=== PATIENT | female | born 1955 | race Caucasian/White ===

== ENCOUNTER → 2017-08-10 09:56 | Outpatient (CLI) | payer OTHER, SELFPAY ==
[2017-08-10 12:49] LABS: Anion Gap 6 (5-15); BUN 16 mg/dL (7-18); BUN/Creat Ratio 23.3 RATIO (10-20); Calcium,Total 9.2 mg/dL (8.5-10.1); Chloride 104 mmol/L (98-107); Cholesterol 207 mg/dL (200); Creatinine, Serum 0.69 mg/dL (0.55-1.02); EST Glomerular Filtration Rate 92 mL/min (>60); Est Glom Filt Rate - Afr Amer 112 mL/min (>60); Glucose 88 mg/dL (74-106); High Density Lipoprotein 53 mg/dL; Potassium 4.2 mmol/L (3.5-5.1); Sodium Level 140 mmol/L (136-145); Thyroid Stim Hormone (TSH) 2.49 uIU/mL (0.358-3.74); Triglycerides 109 mg/dL; Very Low Density Lipoprotein 22 mg/dL (5-40)
== END ==
PROVIDERS: Family Provider Family Medicine; PCP Family Medicine; Visit Provider Nurse Practitioner Adult Health
DX: Z13.220 Encounter for screening for lipoid disorders (principal); Z13.1 Encounter for screening for diabetes mellitus; Z13.29 Encounter for screening for other suspected endocrine disorder
CPT/HCPCS: 36415; 80048; 80061; 84443

== ENCOUNTER 2017-08-16 07:53 | Day surgery (SDC) | payer OTHER, SELFPAY ==
--- NOTE | 2017-08-16 | COLBX_PTH ---
PATIENT: JOSE ROCK LOC: EN U#:[id number] AGE/SX: 62/F ROOM: RE08/16/[address]: Dr. Dung Rose MD : [id number] BED: DIS: 08/16/2017 SPEC #: [id number] RECD: 08/16/17 09:28 STATUS: CAROL YANICK #: [id number] LUIS: 08/16/17 00:[address]: Dung Rose DEPT: SURGICAL PATHOLOGY RECD BY: Topher Turpin ENTERED: 08/16/17 13:11 SP TYPE: COLON BX OTHR DR: Dr. Fortunato Jacobo MD Tissues: Rectum, NOS Procedures: Surgery Specimen Level IV HEADER OPERATION: Colonoscopy PRE-OP DIAGNOSIS: Rectal bleeding TISSUE SUBMITTED: Mid and proximal rectum biopsy MICROSCOPIC DIAGNOSIS Mid and proximal rectum, biopsy: Focal acute colitis, nonspecific. AM:alma 08/17/17 COMMENT There is focal acute colitis involving superficial epithelium. No crypt abscesses or granulomas are seen and no fissuring ulcers are present. Clinical correlation is suggested. MICROSCOPIC DESCRIPTION Slides are reviewed. GROSS DESCRIPTION Received in fixative is one container labeled with the patient's name and designated proximal rectum biopsy. The specimen consists of two irregular fragments of light ramirez soft tissue that in aggregate measure 0.5 x 0.3 x 0.1 cm. The specimen is totally submitted in one cassette. / AM:alma 08/16/17 TC:2 CPT: 27996
[2017-08-16 08:19] VITALS: BP 120/66; PULSE 62; RESP 18; TEMP 36.6; O2SAT 98; BMI 27.8
[2017-08-16 09:12] VITALS: BP 101/56; BP 120/66; PULSE 67; RESP 16; TEMP 36; O2SAT 97
[2017-08-16 09:17] VITALS: BP 100/65; BP 120/66; PULSE 65; RESP 16; O2SAT 98
[2017-08-16 09:22] VITALS: BP 106/58; BP 120/66; PULSE 61; RESP 16; O2SAT 98
[2017-08-16 09:27] VITALS: BP 110/60; BP 120/66; PULSE 64; RESP 16; TEMP 36.3; O2SAT 97
[2017-08-16 10:00] VITALS: BP 120/66
--- NOTE | 2017-08-16 10:18 | PCM.OPRPT ---
Problem List (1) Blood in stool Status: Acute Report of Operation Date of Procedure: 08/16/17 Pre-Operative Diagnosis: Blood in the stool and hemorrhoids Post-Operative Diagnosis: 1. Inflammation of the sigmoid rectum junction. 2. Hemorrhoids Surgery/Procedure Performed:: Colonoscopy with biopsy Specimen's removed: Proximal rectum biopsy Description of Procedure: The major risks and benefits associated with the procedure were explained to the patient in detail. The patient verbalized understanding and agreement with the same. The patient was brought to the endoscopy suite. After adequate sedation was achieved, the patient was placed in the left lateral decubitus position and a digital rectal exam was performed. This examination was within normal limits. A well-lubricated colonoscope was then inserted into the rectum and advanced under direct visualization to the level of the cecum. The bowel prep was good. The cecum was identified by both visual and anatomic landmarks. A photograph was taken of the end of the cecum. The scope was then fully withdrawn while examining the color, texture, anatomy and integrity of the mucosa from the cecum to the anal canal. The patient had some inflammation at the junction of the sigmoid and rectum. This area was biopsied with cold forceps. Otherwise the findings were consistent with normal colonic mucosa. Over 6 minutes were taken to examine the colonic mucosa. Upon reaching the rectum the scope was retroflexed to examine the distal rectal vault. The scope was then straightened and was completely retrieved upon exiting the anal canal and the procedure was terminated. The patient was then transferred to the recovery room in stable condition. Recommendations for follow up: Dependent on pathology
== END 2017-08-16 10:00 | disposition home or self-care (01) ==
LOC: EN 07:53 → AC 07:54
PROVIDERS: Family Provider Family Medicine; PCP Family Medicine; Visit Provider Surgery
PROC: 0DJD8ZZ Inspection of Lower Intestinal Tract, Via Natural or Artificial Opening Endoscopic (ICD-10-PCS; CPT 45378; principal; 2017-08-16 08:40)
DX: K64.2 Third degree hemorrhoids (principal); K92.1 Melena; K52.9 Noninfective gastroenteritis and colitis, unspecified; D64.9 Anemia, unspecified; K21.9 Gastro-esophageal reflux disease without esophagitis; Z79.899 Other long term (current) drug therapy; Z78.0 Asymptomatic menopausal state; Z87.891 Personal history of nicotine dependence; Z98.51 Tubal ligation status
CPT/HCPCS: 45380; 88305; J7120

== ENCOUNTER → 2017-08-27 10:39 | Outpatient (CLI) | payer OTHER, SELFPAY ==
--- NOTE | 2017-08-27 11:35 | STE_ITS ---
Reason For Study: CHEST PAIN Stress Results Protocol: Augusto Protocol Maximum Predicted HR: 159 bpm Target HR: 135 bpm% Max imum Predicted HR: 96 % DurationHeart Rate Stage (mm:ss) (bpm) BP BASELINE 76 148/70 STAGE 1 3:00 11 2 182/70 STAGE 2 3:00 13 4 210/60 STAGE 3 3:00 15 3 230/62 RECOVERY 85 142/60 Stress Duration: 9:00 mm:ss Maximum Stress HR: 153 bpm Baseline Echocardiogram Findings The estimated ejection fraction is 65 %. Stress Echo Wall motion Data Resting WMIntermediate WMStress WM Resting Wall Motion Wall Motion Stress No regional wall motion No regional wall motion abnormalities noted. abnormalities noted. EKG Data Normal intervals are noted. The stress ECG displays diffuse abnormal ST segments. Interpretation Summary The estimated ejection fraction is 65 %. Normal adequate treadmill echocardiogram. Negative for ischemia by echocardiographic criteria. No anginal symptoms noted. Rare PVC noted. Abnormal EKG with exercise with dynamic ST segment depression which is nonspecific given patient's age and female status. No associated wall motion abnormalities noted. Average exercise capacity for age. Hypertensive blood pressure response to exercise. Test terminated due to attainment of THR. Final LVEF=75%. Patient tolerated procedure well. No complications. Ordering Physician: Nydia Obando Referring Physician: Nydia Obando Performed By: Giselle Mcdaniels, HOLDEN, RVT
== END ==
PROVIDERS: Family Provider Family Medicine; PCP Family Medicine; Visit Provider Nurse Practitioner Adult Health
DX: R07.9 Chest pain, unspecified (principal)
CPT/HCPCS: 93017; 93350

== ENCOUNTER → 2017-08-31 17:30 | Outpatient (CLI) | payer OTHER, SELFPAY ==
--- NOTE | 2017-08-31 17:21 | HPBI_ITS ---
MAMMOGRAPHY - BILATERAL SCREENING REASON FOR EXAM: Female, 62 years old. Routine annual screening examination. PERTINENT HISTORY: Non-contributory. TECHNIQUE: Digital bilateral breast zully (3D mammographic acquisition) in the CC and MLO projections. 2-D mediolateral oblique (MLO) and craniocaudad (CC) views of both breasts were obtained. CAD: Full Field Digital Mammography with Computer Added Detection was performed. COMPARISON: Comparison is made with prior study dated January 29, 2016 and May 12, 2013. FINDINGS: Breast Composition: There are scattered areas of fibroglandular density. There are no dominant masses or suspicious calcifications. No other significant abnormalities are identified. There has been no significant change since the prior study. HPBI/SCREENING MAMM (CAD), BILAT IMPRESSION: Stable bilateral screening mammogram. Yearly follow-up mammogram recommended. (A) ASSESSMENT CATEGORY: BIRADS Category 1: Negative. A letter regarding these results will be sent to the patient by the facility within 30 days. Approximately 10% of breast cancers are not detected by mammography. A normal mammogram should not delay biopsy of a clinically suspicious abnormality. [id number] Electronically Signed: Cedric Claudio MD at 8:24 EST Tel [phone], Service support ,
== END ==
PROVIDERS: Family Provider Family Medicine; PCP Family Medicine; Visit Provider Nurse Practitioner Adult Health
DX: Z12.31 Encounter for screening mammogram for malignant neoplasm of breast (principal)
CPT/HCPCS: 77063; 77067

== ENCOUNTER → 2017-09-14 11:45 | Outpatient (CLI) | payer OTHER, SELFPAY ==
--- NOTE | 2017-09-14 11:47 | NM_ITS ---
CLINICAL: 62-year-old female with reported history of abdominal pain. RADIONUCLIDE HEPATOBILIARY SCINTIGRAPHY COMPARISON: None available FINDINGS: Following the intravenous administration of 5.3 mCi of 99m Tc Mebrofenin, hepatobiliary images reveal: 1. Relatively prompt and homogeneous radiopharmaceutical concentration is noted by a normal sized liver. No parenchymal defects are identified. 2. Gallbladder activity is identified at 15 minutes post radiopharmaceutical administration. 3. Small intestinal tract is observed at 60 minutes following tracer injection. 4. Washout of the radiopharmaceutical by the hepatic parenchyma appears qualitatively normal. The patient was administered a fatty meal (8 ounces BOOST-30 grams fat). The post fatty meal consumption gallbladder ejection fraction calculated at 29 minutes was noted to be 74.0 % (normal greater than 30%). NM/Hepatobilliary Imaging IMPRESSION: 1. NORMAL 99m Tc Mebrofenin hepatobiliary imaging examination with fatty meal ingestion. A. A gallbladder ejection fraction calculated to be greater than 30% following the administration of a consumed fatty meal makes the probability of functional hepatobiliary disease (gallbladder and/or sphincter of Oddi dyskinesia) and/or organic hepatobiliary disease (chronic acalculous cholecystitis and/or cystic duct syndrome) to be low. (Bev and Moa, J Nucl Med 43: 1603, 2002). Electronically Signed: Topher Dubon DO at 23:25 EDT Tel , Service support ,
== END ==
PROVIDERS: Family Provider Family Medicine; PCP Family Medicine
DX: R10.11 Right upper quadrant pain (principal)
CPT/HCPCS: 78226; A9537

== ENCOUNTER → 2018-11-24 17:30 | Outpatient (CLI) | payer OTHER, SELFPAY ==
[2018-11-01 12:04] VITALS: BMI 29.0
--- NOTE | 2018-11-24 17:00 | BI_ITS ---
MAMMOGRAPHY - BILATERAL SCREENING REASON FOR EXAM: Female, 63 years old. Routine annual screening examination. PERTINENT HISTORY: Non-contributory. TECHNIQUE: Digital bilateral breast zully (3D mammographic acquisition) in the CC and MLO projections. 2-D mediolateral oblique (MLO) and craniocaudad (CC) views of both breasts were obtained. CAD: Full Field Digital Mammography with Computer Added Detection was performed. COMPARISON: Comparison is made with prior study dated August 31, 2017 and January 29, 2016. FINDINGS: Breast Composition: There are scattered areas of fibroglandular density. There are no dominant masses or suspicious calcifications. Stable benign-appearing bilateral axillary lymph nodes. No other significant abnormalities are identified. There has been no significant change since the prior study. BI/SCREENING MAMM (CAD), BILAT IMPRESSION: Stable bilateral screening mammogram. Yearly follow-up mammogram recommended. (A) ASSESSMENT CATEGORY: BIRADS Category 2: Benign. A letter regarding these results will be sent to the patient by the facility within 30 days. Approximately 10% of breast cancers are not detected by mammography. A normal mammogram should not delay biopsy of a clinically suspicious abnormality. [id number] Electronically Signed: Cedric Claudio, at 8:22 EDT , Service support ,
== END ==
PROVIDERS: Family Provider Family Medicine; PCP Family Medicine; Referring Provider Family Medicine; Visit Provider Family Medicine
DX: Z12.31 Encounter for screening mammogram for malignant neoplasm of breast (principal)
CPT/HCPCS: 77063; 77067

== ENCOUNTER 2019-01-18 16:30 | Outpatient (RCR) | payer OTHER, SELFPAY ==
[2018-11-01 12:04] VITALS: BMI 29.0
--- NOTE | 2019-01-03 10:08 | HP.PTEVAL_ITS ---
Patient's Visit Information JOSE ROCK is a 63 year old F referred to Physical Therapy by Jesus Cantor DPM with a diagnosis of Plantar Fascial Tear/Partial. Date of Evaluation: 01/03/19 Physical Therapist: Quyen Campos DPT - Visit Plan Frequency: 2x /Week Duration: 2 Weeks Plan: Good ROM and Strength but increased inflammation- modality of US and manual therapy to promote blood flow and decreasing of inflammation - Subjective Findings: Patient reports that she is semi-retired. Walks dogs and volunteers at the [employer]- fell in a hole and felt something tear. Accident about 6 weeks ago- foot swelled up- called and could not get in 1-2 days after- Saw Dr. Stacy first and then has seen Dr. Cantor since then. Took x-rays- inflammation and possible tear and then put her in a boot. Has been weight bearing through the whole thing in a knee high CAM boot. Saw Dr. Cantor every 2 weeks. Feels that its getting better but when she is on her feet for 7 hours its terrible at night and then gets better as the day goes on. Is only in the boot when she goes out. 48 hours: Worst: 4/10 Best: 2/10. Feels like pressing on a bruise- tenderness and irritated. Agg: Standing- being on it a lot, stairs. Eases: g entle movement. Pain is in the heel and the arch. Still has numbness on the outside. No radiating pain. No MRI at this time. Just got back from [place] so she is a little more sore. Sleep: disturbed- side sleeper- no pillow between the knees. Last MD visit said attempt therapy and then go from there. 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 Rides bikes and walks on the trails- very active. PMHx: none- Right foot surgery Meds: none - Objective Posture: fair in sitting and standing mild FH, RS- can correct with verbal cues. Gait: antalgic- Knee high CAM walker on the left LE and minimalist shoe on the right. Observation: mild pes planus bilateral. SLS: 15 sec with increased muscle activation and reports unsteady. Girth: Mall:27 cm. Figure 8: 56 cm Mets: 23.5 cm. Palpation: tender along medial plantar fascia. ROM: DF: 10 degrees, PF: 60 degrees, Inv: 40 degrees, Ever: 30 degrees- all WFL. Strength: 5/5 throughout LE- core: fair. Flex: Gastroc: moderate, Soleus: mild, HS: moderate. Special Test: windlass mechanics: negative. - Goals Goal 1:: Patient will be I with HEP and progression Goal Time Frame: 4-6 Weeks Goal 2:: Patient will report 0/10 pain for 1 week Goal Time Frame: 4-6 Weeks Goal 3:: Patient will not be tender to palpation Goal Time Frame: 4-6 Weeks Goal 4:: Patient will SLS for 30 sec without LOB Goal Time Frame: 4-6 Weeks - Rehabilitation Potential Physical Therapy Diagnosis: Patient presents with hypomobility- she has good ROM and strength but reports pain with palpation and has increased inflammation from trauma. - Anticipated Interventions Patient/Client Instruction: Educate patient on: Benefits of Fitness Program Therapeutic Exercise to Include: Strength training, Endurance training, Body mechanics, Postural training, Flexibilty training, Gait and locomotor training, Passive ROM, Active ROM For the Purpose of:: To improve muscle performance and motor function Manual Therapy Techniques to Include: Mobilization, Soft tissue mobilization For the Purpose of:: To improve nutrient delivery to tissue TENS: Yes Cryotherapy (ice pack, ice massage): Yes Thermo therapy (hot pack): Yes Ultrasound (thermal/non thermal): Yes Thank you for the opportunity to evaluate your patient. For Medicare and Medicare HMO plans, please review the plan of care and approve it. It will need to be FAXED BACK to us at [phone] for Medicare purposes. For Medicare only, by signing this I certify the plan of care. Please let me know if there are questions or concerns regarding this plan of care. Physician Signature : Date:
--- NOTE | 2019-01-16 08:37 | HP.PTREVAL_ITS ---
Jesus Cantor DPM, It has been my pleasure to treat JOSE ROCK over the last 5 visits for Plantar Fascial Tear/Partial. Please see the progress note below for an update on the physical therapy plan of care! Subjective: Patient reports that the foot is not so bad- now that she is working it- it is swelling more. If she is sitting for long periods it feels like she needs to stretch it. At home she not really wearing the boot but does wear it out in the community. Does not have an apt with the MD again. She is icing more in the morning and evening. Feels like it has knots in it. Objective/Function: Posture: fair in sitting and standing mild FH, RS- can correct with verbal cues. Gait: antalgic- Knee high CAM walker on the left LE and minimalist shoe on the right. Observation: mild pes planus bilateral. SLS: 20 sec with increased muscle activation and reports unsteady. Palpation: tender along medial plantar fascia. ROM: DF: 10 degrees, PF: 60 degrees, Inv: 40 degrees, Ever: 30 degrees- all WFL. Strength: 5/5 throughout LE- core: fair. Flex: Gastroc: moderate, Soleus: mild, HS: moderate. Special Test: windlass mechanics: negative. Plan Plan: Good ROM and Strength but increased inflammation- modality of US and manual therapy to promote blood flow and decreasing of inflammation. 01/16/19 Continue with current POC- gave HEP of gentle massage to the bottom of the foot and continued stretching- wean from boot for short periods of time when doing more sitting tasks. Goals Goal 1:: Patient will be I with HEP and progression Goal Time Frame: 4-6 Weeks Goal Progress: Progressing Goal 2:: Patient will report 0/10 pain for 1 week Goal Time Frame: 4-6 Weeks Goal Progress: Progressing Goal 3:: Patient will not be tender to palpation Goal Time Frame: 4-6 Weeks Goal Progress: Progressing Goal 4:: Patient will SLS for 30 sec without LOB Goal Time Frame: 4-6 Weeks Goal Progress: Progressing Anticipated Interventions Patient/Client Instruction: Educate patient on: Benefits of Fitness Program Therapeutic Exercise to Include: Strength training, Endurance training, Body me chanics, Postural training, Flexibilty training, Gait and locomotor training, Passive ROM, Active ROM For the Purpose of:: To improve muscle performance and motor function Manual Therapy Techniques to Include: Mobilization, Soft tissue mobilization For the Purpose of:: To improve nutrient delivery to tissue TENS: Yes Cryotherapy (ice pack, ice massage): Yes Thermo therapy (hot pack): Yes Ultrasound (thermal/non thermal): Yes Please do not hesitate to contact me at [phone] by phone or if you have questions or concerns regarding this new plan of care! Sincerely, CROW ReadT
--- NOTE | 2019-04-07 09:52 | HP.PT.NRP ---
HP - Discharge Summary (1) - Patient Information JOSE ROCK was seen in my office for initial evaluation on 01/03/19. The following Plan of Care was established for this patient: Initial Frequency: 2x /Week Initial Duration: 2 Weeks - Anticipated Interventions Patient/Client Instruction: Educate patient on: Benefits of Fitness Program Therapeutic Exercise to Include: Strength training, Endurance training, Body mechanics, Postural training, Flexibilty training, Gait and locomotor training, Passive ROM, Active ROM For the Purpose of:: To improve muscle performance and motor function Manual Therapy Techniques to Include: Mobilization, Soft tissue mobilization For the Purpose of:: To improve nutrient delivery to tissue TENS: Yes Cryotherapy (ice pack, ice massage): Yes Thermo therapy (hot pack): Yes Ultrasound (thermal/non thermal): Yes This patient was last seen in our office . Pertinent comments regarding their Physical therapy will appear below: Patient has not attended PT in 4 weeks and is appropriate for d/c- return to MD for further evaluation as needed. At this point I will be discontinuing this patient from physical therapy. I would be happy to see this patient again in the future if found appropriate by the physician. Thank you! CROW ReadT
== END 2019-01-18 19:00 | disposition home or self-care (01) ==
LOC: PT 16:30
PROVIDERS: Family Provider Family Medicine; PCP Family Medicine; Referring Provider Podiatrist; Visit Provider Podiatrist
DX: M72.2 Plantar fascial fibromatosis (principal); M79.622 Pain in left upper arm; M77.32 Calcaneal spur, left foot
CPT/HCPCS: 97035; 97110; 97161; 97164

== ENCOUNTER → 2019-02-07 07:21 | Outpatient (CLI) | payer OTHER, SELFPAY ==
[2018-11-01 12:04] VITALS: BMI 29.0
--- NOTE | 2019-02-07 07:28 | MRI_ITS ---
STUDY: MRI LEFT REARFOOT WITHOUT CONTRAST REASON FOR EXAM: Female, 63 years old. Heel pain, injury TECHNIQUE: Standardized fat and water weighted pulse sequences were obtained in all 3 orthogonal planes. COMPARISON: None. FINDINGS: Normal subcutis adipose space. Normal posterior tibialis tendon. Normal flexor digitorum longus tendon. Normal flexor hallucis longus tendon. Normal peroneus longus and brevis tendons. Normal tibialis anterior tendon. Normal extensor hallucis longus tendon. Normal extensor digitorum longus tendons. Normal Achilles tendon and teno-osseous insertion. There is marked thickening and edema of the proximal plantar fascia with interstitial tear is approximately and reactive edema of the tiny plantar calcaneal enthesophyte consistent with plantar fasciitis. Normal plantar calcaneal tubercles. Normal intrinsic muscles of the rearfoot. Normal distal tibiofibular syndesmotic ligamentous complex. Normal lateral ligamentous complex. Normal subtalar ligaments and sinus tarsi. Normal deltoid ligamentous complexes. Normal plantar calcaneonavicular (spring) ligament. Normal tibiotalar articulation. Normal talar dome. Normal subtalar articulations. Normal talonavicular articulation. Normal calcaneocuboid articulation. Normal navicular-cuneiform articulations. MRI/Lower Ext/No Jt/w/o IMPRESSION: Moderate plantar fasciitis with developing interstitial tears the proximal plantar fascia and reactive edema of the tiny plantar calcaneal enthesophyte. Electronically Signed: Topher Hanks MD at 9:06 EDT Tel , Service support ,
== END ==
PROVIDERS: Family Provider Family Medicine; PCP Family Medicine; Referring Provider Podiatrist; Visit Provider Podiatrist
DX: M72.2 Plantar fascial fibromatosis (principal); M79.672 Pain in left foot; M77.32 Calcaneal spur, left foot; M76.822 Posterior tibial tendinitis, left leg; S93.691D Other sprain of right foot, subsequent encounter; X58.XXXD Exposure to other specified factors, subsequent encounter
CPT/HCPCS: 73718

== ENCOUNTER → 2020-05-08 13:25 | Outpatient (CLI) | payer OTHER, SELFPAY ==
[2018-11-01 12:04] VITALS: BMI 29.0
== END ==
PROVIDERS: PCP Family Medicine; Visit Provider Family Medicine
DX: U07.1 COVID-19 (principal)
CPT/HCPCS: 87635; U0003

== ENCOUNTER → 2020-06-20 08:20 | Outpatient (CLI) | payer OTHER, SELFPAY ==
[2018-11-01 12:04] VITALS: BMI 29.0
--- NOTE | 2020-06-20 08:25 | BD_ITS ---
STUDY: DUAL ENERGY X-RAY ABSORPTIOMETRY / DXA REASON FOR EXAM: Female, 65 years old. Age of surgical khoi 38. Pat is 191.5# and 65.5 and quot; a loss of 1.5 and quot; per pat. Past hx of smoking a long time ago. Past hx of taking a diuretic a long time ago. Takes a multi-vit. Exercises none to a little. TECHNIQUE: Bone Mineral Density (BMD) measurements of lumbar spine and bilateral hips were obtained. COMPARISON: None. FINDINGS: Lumbar Spine (L1-L4): g/cm2 (1.020) / T-score (-1.3) / Z-score (0.2) Findings are suggestive of osteopenia with a low fracture risk. Left Femur Total: g/cm2 (0.974) / T-score (-0.3) / Z-score (0.9) Left Femoral Neck: g/cm2 (0.949) / T-score (-0.6) / Z-score (0.8) Right Femur Total: g/cm2 (1.003) / T-score (0.0) / Z-score (1.1) Right Femoral Neck: g/cm2 (0.980) / T-score (-0.4) / Z-score (1.0) BD/Dexa Bone Density Study IMPRESSION: The patient is considered osteopenic as outlined below according to World Germán Organization (WHO) criteria with a low fracture risk. Reference Information: The T-score is the number of standard deviations above or below the standard which is normal for young adults at their peak bone mineral density. The World Health Organization (WHO) interprets the T-scores as follows: Above -1 Normal bone density Between -1 and -2.5 Osteopenia Equal to / or below -2.5 Osteoporosis As a practical clinical guideline, osteopenia may be graded as follows: Mild -1 through -1.5 Moderate -1.6 through -2.0 Severe -2.1 through -2.4 The Z-score is the number of standard deviations above or below age-matched controls. A Z-score of less than -1.5 would be considered abnormal. References: 1. NIH Osteoporosis and Related Bone Diseases www osteo.org 2. International Society for Clinical Densitometry www iscd.org 3. National Osteoporosis Foundation www nof.org Electronically Signed: Cedric Claudio, at 12:06 EST , Service support ,
== END ==
PROVIDERS: PCP Family Medicine; Referring Provider Family Medicine; Visit Provider Family Medicine
DX: Z78.0 Asymptomatic menopausal state (principal); M85.80 Other specified disorders of bone density and structure, unspecified site
CPT/HCPCS: 77080

== ENCOUNTER → 2020-07-02 14:50 | Outpatient (CLI) | payer OTHER, SELFPAY ==
[2018-11-01 12:04] VITALS: BMI 29.0
--- NOTE | 2020-07-02 14:52 | CT_ITS ---
STUDY: CT BRAIN WITH AND WITHOUT CONTRAST REASON FOR EXAM: Female, 65 years old. FAMILY HX OF BRAIN ANEURYSM RADIATION DOSAGE (If Supplied By Facility): CTDIvol = ( 44.99 ) mGy, DLP = ( 1614.72 ) mGycm TECHNIQUE: Transaxial CT imaging of the brain was performed pre and post contrast administration. The examination was performed with intravenous administration of IV 50mL Isovue-370. Individualized dose optimization techniques were used for this CT. COMPARISON: 09/09/2014 FINDINGS: Normal soft tissue structures. Normal calvarium. Normal size ventricles and extra-axial spaces for the patient''s age. Normal white matter tracts of the cerebral hemispheres. Normal basal ganglia and thalami. Normal brainstem. Normal cerebellum. There is no intracranial hemorrhage. There are no findings of an acute ischemic infarction. Normal visualized paranasal sinuses. CT/Brain/Head W/WO Contrast IMPRESSION: Normal unenhanced and enhanced CT scan of the brain. Electronically Signed: Topher Hanks MD at 16:14 EST Tel , Service support ,
[2020-07-02 15:30] LABS: CREATININE FINGERSTICK 1.2 mg/dL (0.55-1.02)
== END ==
PROVIDERS: PCP Family Medicine; Referring Provider Family Medicine; Visit Provider Family Medicine
DX: Z12.31 Encounter for screening mammogram for malignant neoplasm of breast (principal); Z82.49 Family history of ischemic heart disease and other diseases of the circulatory system
CPT/HCPCS: 70470; Q9967

== ENCOUNTER → 2020-07-04 07:23 | Outpatient (CLI) | payer OTHER, SELFPAY ==
[2018-11-01 12:04] VITALS: BMI 29.0
--- NOTE | 2020-07-04 07:24 | BI_ITS ---
MAMMOGRAPHY - BILATERAL SCREENING REASON FOR EXAM: Female, 65 years old. Routine annual screening examination. PERTINENT HISTORY: Non-contributory. TECHNIQUE: Digital bilateral breast ash (3D mammographic acquisition) in the CC and MLO projections. 2-D mediolateral oblique (MLO) and craniocaudad (CC) views of both breasts were obtained. CAD: Full Field Digital Mammography with Computer Added Detection was performed. COMPARISON: Comparison is made with prior study dated 11/24/2018 and 08/31/2017. FINDINGS: Breast Composition: There are scattered areas of fibroglandular density. There are no dominant masses or suspicious calcifications. Stable small benign appearing bilateral axillary lymph nodes. No other significant abnormalities are identified. There has been no significant change since the prior study. BI/SCREEN MAMM (CAD) W/ASH BILAT IMPRESSION: Stable bilateral screening mammogram. Yearly follow-up mammogram recommended. (A) ASSESSMENT CATEGORY: BIRADS Category 2: Benign. A letter regarding these results will be sent to the patient by the facility within 30 days. Approximately 10% of breast cancers are not detected by mammography. A normal mammogram should not delay biopsy of a clinically suspicious abnormality. [id number] Electronically Signed: Cedric Claudio, at 8:19 EST , Service support ,
== END ==
PROVIDERS: PCP Family Medicine; Referring Provider Family Medicine; Visit Provider Family Medicine
DX: Z12.31 Encounter for screening mammogram for malignant neoplasm of breast (principal); Z82.49 Family history of ischemic heart disease and other diseases of the circulatory system
CPT/HCPCS: 77063; 77067

== ENCOUNTER → 2020-07-04 08:40 | Outpatient (CLI) | payer OTHER, SELFPAY ==
[2018-11-01 12:04] VITALS: BMI 29.0
[2020-07-04 10:37] LABS: Absolute Lymphocyte Count 1.09 X10^3/uL (0.83-4.51); Absolute Neutrophil Count 2.1 X10^3/uL (2.0-7.7); Basophil# 0.04 X10^3/uL; Eosinophil# 0.12 X10^3/uL; Eosinophils% 3.1 % (0-5); Hematocrit 42.8 % (37-47); Hemoglobin 13.4 g/dL (12.0-15.0); Lymphocyte # 1.09 X10^3/ul (4.0); Lymphocyte % 28.2 % (19-41); Mean Corp Hgb Conc 31.3 g/dL (32-36); Mean Corpuscular Hgb 26.6 pg (27.0-32.0); Mean Corpuscular Volume 85.1 fL (81-99); Mean Platelet Vol. 11.9 fl (6.2-12.0); Monocyte# 0.52 X10^3/uL; Monocyte% 13.4 % (0-10); NRBC Flagged by Analyzer 0 % (0-5); Neutrophil # 2.09 X10^3/uL (2.7-7.7); Platelet Count 218 K/mm3 (150-450); RBC Distribution Width CV 13.2 % (11.6-14.6); RBC Distribution Width SD 40.7 fl (35.1-43.9); Red Blood Count 5.03 M/mm3 (4.2-5.4); White Blood Count 3.9 K/mm3 (4.4-11.0)
[2020-07-04 11:02] LABS: ALB/GLOB Ratio 1.1 RATIO (0.9-2.4); AST(SGOT) 14 U/L (15-37); Alanine Aminotransfer ALT/SGPT 31 U/L (13-56); Albumin, Serum 3.9 g/dL (3.2-5.0); Alkaline Phosphatase 92 U/L (45-117); Anion Gap 5 (5-15); BUN 17 mg/dL (7-18); BUN/Creat Ratio 21.7 RATIO (10-20); Calcium,Total 9.1 mg/dL (8.5-10.1); Chloride 110 mmol/L (98-107); Cholesterol 206 mg/dL (200); Creatinine, Serum 0.78 mg/dL (0.55-1.02); EST Glomerular Filtration Rate 78 mL/min (>60); Est Glom Filt Rate - Afr Amer 95 mL/min (>60); Globulin 3.6 g/dL (2.2-4.2); Glucose 91 mg/dL (74-106); High Density Lipoprotein 45 mg/dL; Potassium 4.3 mmol/L (3.5-5.1); Protein, Total 7.5 g/dL (6.4-8.2); Sodium Level 142 mmol/L (136-145); Thyroid Stim Hormone (TSH) 3.35 uIU/mL (0.358-3.74); Triglycerides 128 mg/dL; Very Low Density Lipoprotein 26 mg/dL (5-40)
== END ==
PROVIDERS: PCP Family Medicine; Referring Provider Family Medicine; Visit Provider Family Medicine
DX: M35.00 Sjogren syndrome, unspecified (principal); Z13.220 Encounter for screening for lipoid disorders
CPT/HCPCS: 36415; 80053; 80061; 84443; 85025

== ENCOUNTER → 2020-07-11 12:46 | Outpatient (CLI) | payer OTHER, SELFPAY ==
[2018-11-01 12:04] VITALS: BMI 29.0
--- NOTE | 2020-07-11 12:49 | RAD_ITS ---
STUDY: X-RAY CHEST REASON FOR EXAM: Female, 65 years old. Cough. Dyspnea. History of COVID 19 infection 2 months ago. TECHNIQUE: PA and lateral views of the chest. COMPARISON: Chest, 09/09/2014. FINDINGS: The lungs are clear and expanded. There is no demonstrated pleural abnormality. Normal size heart. Normal mediastinum and felisa. Normal visualized pulmonary arteries. Normal visualized aortic arch and descending thoracic aorta. There is demineralization of the osseous structures. Normal visualized ribs, clavicles, and shoulders. There is no demonstrated abnormality of the visualized soft tissue structures of the upper abdomen. RAD/Chest PA and Lateral IMPRESSION: No acute cardiopulmonary disease or major interval change. Electronically Signed: Gian Collins DO at 21:19 EST Tel [phone], Service support ,
== END ==
PROVIDERS: PCP Family Medicine; Referring Provider Internal Medicine Pulmonary Disease; Visit Provider Internal Medicine Pulmonary Disease
DX: R05 Cough (principal); R06.00 Dyspnea, unspecified
CPT/HCPCS: 71046

== ENCOUNTER → 2021-01-20 11:08 | Outpatient (CLI) | payer OTHER, SELFPAY ==
[2018-11-01 12:04] VITALS: BMI 29.0
[2021-01-20 12:22] LABS: Erythrocyte Sedimentation Rate 5 mm/hr (0-30)
[2021-01-20 12:26] LABS: Absolute Lymphocyte Count 0.78 X10^3/uL (0.83-4.51); Absolute Neutrophil Count 2.1 X10^3/uL (2.0-7.7); Basophil# 0.04 X10^3/uL; Basophil% 1.1 % (0-1); Eosinophils% 2.8 % (0-5); Hematocrit 40.1 % (37-47); Hemoglobin 12.5 g/dL (12.0-15.0); Lymphocyte # 0.78 X10^3/ul (0.83-4.51); Mean Corp Hgb Conc 31.2 g/dL (32-36); Mean Corpuscular Hgb 26.1 pg (27.0-32.0); Mean Corpuscular Volume 83.7 fL (81-99); Mean Platelet Vol. 12.4 fl (6.2-12.0); Monocyte% 14.1 % (0-10); NRBC Flagged by Analyzer 0 % (0-5); Neutrophil # 2.12 X10^3/uL (2.7-7.7); Platelet Count 202 K/mm3 (150-450); RBC Distribution Width CV 14.2 % (11.6-14.6); Red Blood Count 4.79 M/mm3 (4.2-5.4); White Blood Count 3.5 K/mm3 (4.4-11.0)
[2021-01-20 12:56] LABS: PTHIN 20.5 pg/mL (18.4-80.1)
[2021-01-20 13:25] LABS: AST(SGOT) 130 U/L (15-37); Alanine Aminotransfer ALT/SGPT 297 U/L (13-56); Albumin, Serum 3.7 g/dL (3.2-5.0); Alkaline Phosphatase 179 U/L (45-117); Anion Gap 4 (5-15); BUN 17 mg/dL (7-18); CPK Total, Creatine Kinase 44 U/L (26-192); CRP 4.89 mg/L (0.0-3.0); Calcium,Total 9.2 mg/dL (8.5-10.1); Chloride 107 mmol/L (98-107); Creatinine, Serum 0.68 mg/dL (0.55-1.02); EST Glomerular Filtration Rate 92 mL/min (>60); Est Glom Filt Rate - Afr Amer 112 mL/min (>60); Globulin 3.8 g/dL (2.2-4.2); Glucose 85 mg/dL (74-106); Protein, Total 7.5 g/dL (6.4-8.2); Sodium Level 140 mmol/L (136-145)
[2021-01-21 14:09] LABS: Anti-Centromere B Ab <0.2 AI (0.0-0.9); Anti-Chromatin <0.2 AI (0.0-0.9); Anti-Jo <0.2 AI (0.0-0.9); Anti-Scleroderma-70 AB <0.2 AI (0.0-0.9); RNP Ab 0.2 AI (0.0-0.9); SJOGREN'S Anti-SS-A test < 0.2 AI (0.0-0.9); Smith Ab <0.2 AI (0.0-0.9)
[2021-01-21 16:55] LABS: Anti-dsDNA Ab 1 IU/mL (0-9)
[2021-01-22 09:08] LABS: Lyme Ab Screen Interpretation REF LAB
[2021-01-22 09:46] LABS: Rheumatoid Factor < 10.0 IU/mL (<15)
[2021-01-22 10:23] LABS: Hepatitis C Antibody Non-Reactive (Nonreactive)
[2021-01-24 10:20] LABS: Anti-Smooth Muscle ABS 3 Units (0-19); CCP IgG Antibodies 8 units (0-19); Lyme Scn Total Ab w/Rflx <0.91 ISR (0.00-0.90)
== END ==
PROVIDERS: PCP Family Medicine; Visit Provider Family Medicine
DX: M62.81 Muscle weakness (generalized) (principal)
CPT/HCPCS: 36415; 80053; 82550; 83516; 83970; 84443; 85025; 85652; 86140; 86200; 86225; 86235; 86431; 86617; 86618; 86803

== ENCOUNTER → 2021-01-29 08:18 | Outpatient (CLI) | payer OTHER, SELFPAY ==
[2018-11-01 12:04] VITALS: BMI 29.0
--- NOTE | 2021-01-29 08:20 | US_ITS ---
EXAM: US ABDOMEN LIMITED, RIGHT UPPER QUADRANT CLINICAL INDICATION: elevated liver enzymes TECHNIQUE: Real-time ultrasound of the right upper quadrant with image documentation. This report was created using Ads[employer] report generation technology. COMPARISON: None. FINDINGS: LIVER: Unremarkable. There is normal echotexture. No focal hepatic lesion. No intrahepatic biliary ductal dilation. GALLBLADDER: Cholecystectomy. COMMON BILE DUCT: Unremarkable as visualized. The proximal common bile duct is within normal limits for the patient''s age. PANCREAS: Unremarkable as visualized. No focal abnormality is demonstrated in the pancreas. No pancreatic ductal dilatation. RIGHT KIDNEY: Unremarkable. There is no hydronephrosis. No shadowing calculus. No focal lesion or perinephric collection is demonstrated. US/Abdomen Limited IMPRESSION: No biliary dilation or hepatic masses. Cholecystectomy. Electronically Signed: Jason Valentin MD ([place]) at 8:51 EDT , Service support ,
== END ==
PROVIDERS: PCP Family Medicine; Referring Provider Family Medicine; Visit Provider Family Medicine
DX: R74.8 Abnormal levels of other serum enzymes (principal)
CPT/HCPCS: 76705

== ENCOUNTER → 2021-04-14 13:23 | Outpatient (CLI) | payer MEDICARE, OTHER, SELFPAY ==
[2018-11-01 12:04] VITALS: BMI 29.0
--- NOTE | 2021-04-14 15:15 | NEURO_ITS ---
NCS and/or EMG Patient Report Ordering Doctor: Fortunato Jacobo DATE OF SERVICE: 04/14/21 Indication: Generalized weakness over the last several months (proximal greater than distal). Evaluate for neuromuscular causes of weakness. Findings: Nerve conduction studies were performed in the right upper and lower extremitie s. The right median motor study recording the abductor pollicis brevis showed a normal amplitude, prolonged distal latency and normal conduction velocity. The right radial sensory response recording over the extensor snuff box showed a normal amplitude, latency and conduction velocity. The right tibial motor study recording the abductor hallucis brevis showed a normal amplitude, normal distal latency and normal conduction velocity. Right sural sensory response showed a normal amplitude and conduction velocity. Repetitive nerve stimulation at 2 Hz of the right median nerve, recording the abductor pollicis brevis, showed no abnormal decrement at baseline or following two-four minutes after one minute of exercise testing. Needle EMG of the upper and lower extremity as well as paraspinal muscles was performed. No denervation was present in any muscle. No myotonic discharges were present. Motor unit morphology, activation, and recruitment patterns were normal. Impression: This is an essentially normal study. There is no electrophysiologic evidence of a myopathy. In addition, there is no electrophysiologic evidence of a neuromuscular transmission disorder, motor neuron disorder or peripheral neuropathy. The prolonged median motor response may represent an entrapment at the wrist. This was not explored further as it was not the indication for this study. Tyrone Wang D.O. Multi Select Codes Neurology Neurology Interp Codes: 24312-71 [facility] [place]erv [place]st german (interp) (Qty: 2), 34145-11 [facility] cnd tst 3-4 studies (interp) and Other Procedure See Report (Slow repetitive nerve conduction to APB)
--- NOTE | 2021-04-16 08:45 | NEURO ---
Multi Select Codes Neurology Neurology Interp Codes: Other Procedure See Report
== END ==
PROVIDERS: PCP Family Medicine; Referring Provider Family Medicine; Visit Provider Family Medicine
DX: M62.81 Muscle weakness (generalized) (principal)
CPT/HCPCS: 95885; 95886; 95908; 95937

== ENCOUNTER 2021-04-18 11:30 | Outpatient (RCR) | payer MEDICARE, OTHER, SELFPAY ==
[2018-11-01 12:04] VITALS: BMI 29.0
--- NOTE | 2021-02-18 10:42 | HP.PTEVAL ---
Patient's Visit Information JOSE ROCK is a 65 year old F referred to Physical Therapy by CEDRICK Sebastian with a diagnosis of muscle weakness and back pain. Date of Evaluation: 02/18/21 Physical Therapist: HEIDI Bonilla - Visit Plan Frequency: 2x /Week Duration: 6 Weeks Plan: 2X/ week for 4-6 weeks for neutral spine core stability, UE and LE strengthening with HEP so pt is able to carry PT over to home throughout her therapy sessions. Stretch B piriformis, IT band, gastroc and HS as well. 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 She saw Dr Burnett who is a Rhumatologist and he wanted her to do AT at one point. Pt reports that she can not lift things. The tips of her fingers are numb. Her fine motor skills are off to get a regular water bottle open or open bags. Her muscles feel fatigue all the time. She feels that her L bicep quivers all the time. She had COVID back in Apr and thought could be from that. Her inflammation markers are elevated. She reports that she has back pain and it has been there for awhile. It elevated in December and January. She has R sided back pain into her buttock area. Pain is always there and changing position such as standing will lessen the pain but it always is there. She sees a chiro but that obly lasts for a day. She feels pressure there all the time. They did x-rays and she has some curvature some moderate DDD. She has trouble lifting her leg to get her pants on her R leg. She used to be strong and this bothers her a lot. The just did another batch of bloodwork again. Her white count is down and liver enzymes are up and not sure if it is part of her Sjorens syndrome is progressing. She was given plaquanil for imflammation and started that last night. She also has menieres. Stairs: alternate and uses a railing (fatigues her if a lot of steps and her legs feel like they are 100#. Her arms feel like weight all the time as well. Pt has had one back injection for her L side of her body and it helped. - Pain back pain Pain Intensity (Out of 10): 4 - Objective Sit to stand: able to get up without using her arms. Gait: Normal gait pattern. LE MMT: R hip abd 3+/5 and L hip abd 4/5, R hip ext 3-/5 and L hip ext 3+/5, B hip flex 4-/5, B knee flex 4-/5, B knee ext 4/5. Pt is able to 1/2 normal ROM bridge. Pt is able to walk on heels and toes. Trunk AROM: flex 25%, ext 25%, SB B 50%, Rot B 50%. UE MMT; shld flex B 4-/5, Shld Abd B 4-/5, Shld IR B 4/5, Shld ER B 4-/5. B gastroc, B piriformis, B HS tightness. - Balance/Special Test Scores Oswestry Low Back Score: 14 - Goals Goal 1:: I HEP Goal Time Frame: 4-6 Weeks Goal 2:: Increase LE strength by 1/2 muscle grade (at time of the eval: LE MMT: R hip abd 3+/5 and L hip abd 4/5, R hip ext 3-/5 and L hip ext 3+/5, B hip flex 4-/5, B knee flex 4-/5, B knee ext 4/5. Pt is able to 1/2 normal ROM bridge. Pt is able to walk on heels and toes). Goal Time Frame: 4-6 Weeks Goal 3:: Increase UE strength by 1/2 muscle grade (at time of eval: UE MMT; shld flex B 4-/5, Shld Abd B 4-/5, Shld IR B 4/5, Shld ER B 4-/5). Goal Time Frame: 4-6 Weeks Goal 4:: Decrease back pain to 1/10 with ADL's and sitting Goal Time Frame: 4-6 Weeks - Rehabilitation Potential Rehabilitation Potential: Good - Anticipated Interventions Patient/Client Instruction: Educate patient on: Condition, Plan of Care For the Purpose of:: To decrease pain, To increase ROM, To improve nutrient delivery to tissue, To improve muscle performance and motor function, To improve ability to perform ADL's, To increase tolerance to activity/condition/position, To improve performance and independence with ADL's, To decrease level of supervision to perform tasks, To improve ability of physical actions for home/community/work/leisure, To improve gait and locomotor functions, To improve health of tissue, To decrease soft tissue restriction, To increase flexibility/ROM Therapeutic Exercise to Include: Strength training, Postural training, Flexibilty training, Gait and locomotor training, Neuromotor development, Active ROM, Dynamic Lumbar Stabilization, Scapular Strength/Stabilization For the Purpose of:: To decrease pain, To increase ROM, To improve nutrient delivery to tissue, To improve muscle performance and motor function, To improve ability to perform ADL's, To increase tolerance to activity/condition/position, To improve performance and independence with ADL's, To improve ability of physical actions for home/community/work/leisure, To improve health of tissue, To decrease soft tissue restriction, To increase flexibility/ROM Manual Therapy Techniques to Include: Mobilization, Passive ROM For the Purpose of:: To increase ROM, To improve nutrient delivery to tissue, To improve health of tissue, To decrease soft tissue restriction, To increase flexibility/ROM Thank you for the opportunity to evaluate your patient. For Medicare and Medicare HMO plans, please review the plan of care and approve it. It will need to be FAXED BACK to us at [phone] for Medicare purposes. For Medicare only, by signing this I certify the plan of care. Please let me know if there are questions or concerns regarding this plan of care. Physician Signature: Date:
--- NOTE | 2021-03-19 10:58 | HP.PTREVAL_ITS ---
Ophelia Gómez, DEE-C, It has been my pleasure to treat JOSE ROCK over the last 8 visits for muscle weakness and back pain. Please see the progress note below for an update on the physical therapy plan of care! Subjective: Pt reports that she is feeling a little improved in her strength. Still has the same R sided back pain. When she goes the exercises her back feels better. She still can not squat and get back up with out having to pull self up. Her L side is weaker than the R. 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 She cancelled her back injection cause she is afraid that she will not know if she is getting better or not. Objective/Function: LE MMT: R hip abd 4-/5 and L hip abd 4-/5, R hip ext 3+/5 and L hip ext 3+/5, B hip flex 4-/5, B knee flex 4-/5, B knee ext 4/5. Pt is able to 3/4 normal ROM bridge. Pt is able to walk on heels and toes). Increase UE strength by 1/2 muscle grade (at time of eval: UE MMT; shld flex B 4-/5, Shld Abd B 4-/5, Shld IR B 4/5, Shld ER B 4/5). Plan Plan: PLEASE write out gym and HEP if needed. 2X/ week for 3 weeks to learn I HEP and GYM program for neutral spine core stability, UE and LE strengthening with HEP so pt is able to carry PT over to home throughout her therapy sessions. Stretch B piriformis, IT band, gastroc and HS. Balance/Gait/Functional tests - Balance/Special Test Scores Oswestry Low Back Score: 17 Goals Goal 1:: I HEP Goal Time Frame: 4-6 Weeks Goal Progress: Progressing Goal 2:: Increase LE strength by 1/2 muscle grade (at time of the eval: LE MMT: R hip abd 3+/5 and L hip abd 4/5, R hip ext 3-/5 and L hip ext 3+/5, B hip flex 4-/5, B knee flex 4-/5, B knee ext 4/5. Pt is able to 1/2 normal ROM bridge. Pt is able to walk on heels and toes). Goal Time Frame: 4-6 Weeks Goal Progress: Progressing Goal 3:: Increase UE strength by 1/2 muscle grade (at time of eval: UE MMT; shld flex B 4-/5, Shld Abd B 4-/5, Shld IR B 4/5, Shld ER B 4-/5). Goal Time Frame: 4-6 Weeks Goal Progress: Progressing Goal 4:: Decrease back pain to 1/10 with ADL's and sitting Goal Time Frame: 4-6 Weeks Goal Progress: Progressing Anticipated Interventions Patient/Client Instruction: Educate patient on: Condition, Plan of Care For the Purpose of:: To decrease pain, To increase ROM, To improve nutrient delivery to tissue, To improve muscle performance and motor function, To improve ability to perform ADL's, To increase tolerance to activity/condition/position, To improve performance and independence with ADL's, To decrease level of supervision to perform tasks, To improve ability of physical actions for home/community/work/leisure, To improve gait and locomotor functions, To improve health of tissue, To decrease soft tissue restriction, To increase flexibility/ROM Therapeutic Exercise to Include: Strength training, Postural training, F lexibilty training, Gait and locomotor training, Neuromotor development, Active ROM, Dynamic Lumbar Stabilization, Scapular Strength/Stabilization For the Purpose of:: To decrease pain, To increase ROM, To improve nutrient delivery to tissue, To improve muscle performance and motor function, To improve ability to perform ADL's, To increase tolerance to activity/condition/position, To improve performance and independence with ADL's, To improve ability of physical actions for home/community/work/leisure, To improve health of tissue, To decrease soft tissue restriction, To increase flexibility/ROM Manual Therapy Techniques to Include: Mobilization, Passive ROM For the Purpose of:: To increase ROM, To improve nutrient delivery to tissue, To improve health of tissue, To decrease soft tissue restriction, To increase flexibility/ROM Please do not hesitate to contact me at [phone] by phone or if you have questions or concerns regarding this new plan of care! Sincerely, HEIDI Bonilla
--- NOTE | 2021-04-18 11:48 | HP.PTDCSUM ---
It has been my pleasure to treat JOSE ROCK referred by CEDRICK Sebastian, with the diagnosis of muscle weakness and back pain for a total of 12 visit(s). Discharge Date: 04/18/21 Please see the following information for a summary of their discharge status. Subjective: Pt fell last night. She tripped over a railroad melba and fell on her L hand and she can not extend her L middle finger and it is swollen. She has a call into her Dr. She reports that she is better. She is able to do things but she always has pain but it is managable. She still tosses and turns at night. She is I in her HEP and gym exercises and will continue to do those. Stairs make her legs feel like lead but she does feel that her strength is increasing in her arms and legs. back pain Pain Intensity (Out of 10): 1 % Improvement: 90 Objective/Function: Stairs: up and down recip without a handrail. UE MMT; shld flex B 4/5, Shld Abd B 4/5, Shld IR B 4/5, Shld ER B 4/5). LE MMT: R hip abd 4/5 and L hip abd 4/5, R hip ext 4-/5 and L hip ext 4/5, B hip flex 4/5, B knee flex 4/5, B knee ext 4/5. Goal 1:: I HEP Goal Progress: Goal Met Goal 2:: Increase LE strength by 1/2 muscle grade (at time of the eval: LE MMT: R hip abd 3+/5 and L hip abd 4/5, R hip ext 3-/5 and L hip ext 3+/5, B hip flex 4-/5, B knee flex 4-/5, B knee ext 4/5. Pt is able to 1/2 normal ROM bridge. Pt is able to walk on heels and toes). Goal Progress: Goal Met Goal 3:: Increase UE strength by 1/2 muscle grade (at time of eval: UE MMT; shld flex B 4-/5, Shld Abd B 4-/5, Shld IR B 4/5, Shld ER B 4-/5). Goal Progress: Goal Met Goal 4:: Decrease back pain to 1/10 with ADL's and sitting Goal Progress: Progressing Plan: DC PT to HEP and I Gym rountine Discharge Comments: DC PT If there are questions or concerns regarding this patient's physical therapy, please feel free to call me at [phone]. Thank you for the referral of this patient. Sincerely, Farrah Vincent, MPT Balance/Gait/Functional tests - Balance/Special Test Scores Oswestry Low Back Score: 6
== END 2021-04-18 12:18 | disposition home or self-care (01) ==
LOC: PT 11:30
PROVIDERS: PCP Family Medicine; Referring Provider Nurse Practitioner Family; Visit Provider Nurse Practitioner Family
DX: M62.81 Muscle weakness (generalized) (principal); M54.9 Dorsalgia, unspecified
CPT/HCPCS: 97110; 97161; 97530

== ENCOUNTER → 2021-04-22 10:14 | Outpatient (CLI) | payer MEDICARE, OTHER, SELFPAY ==
--- NOTE | 2021-04-22 10:27 | RAD_ITS ---
STUDY: X-RAY - LEFT HAND REASON FOR EXAM: Left hand pain at third metacarpal, left hand injury 5 days ago. TECHNIQUE: 3 view(s) of the hand. COMPARISON: Radiographs 07/08/2016. FINDINGS: Normal radiocarpal articulation. Normal distal radioulnar joint. Normal visualized carpal bones. Normal carpal articulations Normal carpometacarpal articulation of the thumb. Normal second through fifth carpometacarpal joints. Normal metacarpi. Normal metacarpophalangeal joint of the thumb. Normal interphalangeal joint of the thumb. Normal proximal and distal phalanges of the thumb. Normal metacarpophalangeal joints of the second through fifth fingers. There is joint space narrowing of the proximal and distal interphalangeal joints of the second through fifth fingers. Normal phalanges of the second through fifth fingers. The soft tissue structures are unremarkable. RAD/Hand Min 3 Views IMPRESSION: Arthrosis of the interphalangeal joints. No demonstrated fracture. Electronically Signed: Kwesi Cummins MD at 11:15 EDT Tel , Service support ,
== END ==
PROVIDERS: PCP Family Medicine; Referring Provider Family Medicine; Visit Provider Family Medicine
DX: M79.642 Pain in left hand (principal)
CPT/HCPCS: 73130

== ENCOUNTER → 2021-05-26 | Outpatient (CLI) | payer MEDICARE, OTHER, SELFPAY ==
--- NOTE | 2021-05-26 10:43 | ART_ITS ---
Reason For Study: PVD Procedure A bilateral lower extremity continuous wave Doppler with analog waveform analysis,segmental pressures,and ankle brachial indexes with exercise. Left Segmental Pressures Left brachial= 137mmHg. Left posterior tibial artery = 165mmHg. Left dorsalis pedis artery = 148mmHg. The left dorsalis pedis waveforms are triphasic. The left posterior tibial artery waveforms are triphasic. Right Segmental Pressures Right brachial= 134mmHg. Right posterior tibial artery = 167mmHg. Right dorsalis pedis artery = 155mmHg. The right dorsalis pedis waveforms are triphasic. The right posterior tibial artery waveforms are triphasic. Indices The right ankle brachial index by the dorsalis pedis is 1.13. The right ankle brachial index by the posterior tibial artery is 1.22. The right post exercise ankle brachial index is 1.25. The left ankle brachial index by the dorsalis pedis is 1.08. The left ankle brachial index by the posterior tibial artery is 1.20. The left post exercise ankle brachial index is 1.27. VL/Lower Ext Art Exam w/ Exercise Interpretation Summary Triphasic Doppler waveforms are noted at ankle level bilaterally. Pulse-volume recordings appear satisfactory at all levels bilaterally, including low thigh, calf, ankle, and d igital levels. Resting ankle-brachial indices are normal bilaterally. The patient ambulated on a treadmill for 5 minutes at 2 MPH and a 5% grade, following which ankle pressures augmented bila terally, a normal physiological response. There is no evidence of signifcant arterial occlusive disease in the lower extr emities bilaterally. Ordering Physician: Fortunato Jacobo Referring Physician: Fortunato Jacobo Performed By: Vandana Wan RVT
== END | disposition home or self-care (01) ==
LOC: CVS 10:42
PROVIDERS: PCP Family Medicine; Referring Provider Family Medicine; Visit Provider Family Medicine
DX: I73.9 Peripheral vascular disease, unspecified (principal)
CPT/HCPCS: 93924

== ENCOUNTER 2021-08-12 08:36 | Outpatient (CLI) | payer MEDICARE, OTHER, SELFPAY ==
--- NOTE | 2021-08-12 08:42 | BI_ITS ---
MAMMOGRAPHY - BILATERAL SCREENING REASON FOR EXAM: Female, 66 years old. Routine annual screening examination. PERTINENT HISTORY: Non-contributory. TECHNIQUE: Digital bilateral breast zully (3D mammographic acquisition) in the CC and MLO projections. 2-D mediolateral oblique (MLO) and craniocaudad (CC) views of both breasts were obtained. CAD: Full Field Digital Mammography with Computer Added Detection was performed. COMPARISON: Comparison is made with prior study dated 01/01/2021 and 11/24/2018. FINDINGS: Breast Composition: There are scattered areas of fibroglandular density. There are no dominant masses or suspicious calcifications. Stable small benign-appearing bilateral axillary lymph nodes. No other significant abnormalities are identified. There has been no significant change since the prior study. BI/SCREENING MAMM (CAD), BILAT IMPRESSION: Stable bilateral screening mammogram. Yearly follow-up mammogram recommended. (A) ASSESSMENT CATEGORY: BIRADS Category 2: Benign. A letter regarding these results will be sent to the patient by the facility within 30 days. Approximately 10% of breast cancers are not detected by mammography. A normal mammogram should not delay biopsy of a clinically suspicious abnormality. [id number] Electronically Signed: Cedric Claudio MD at 9:54 EST ,
[2021-08-12 12:21] LABS: Absolute Lymphocyte Count 0.88 X10^3/uL (0.83-4.51); Absolute Neutrophil Count 2.3 X10^3/uL (2.0-7.7); Basophil# 0.04 X10^3/uL; Basophil% 1.1 % (0-1); Eosinophil# 0.06 X10^3/uL; Eosinophils% 1.6 % (0-5); Hematocrit 39.9 % (37-47); Lymphocyte # 0.88 X10^3/ul (0.83-4.51); Mean Corp Hgb Conc 32.6 g/dL (32-36); Mean Corpuscular Hgb 27.5 pg (27.0-32.0); Mean Corpuscular Volume 84.4 fL (81-99); Mean Platelet Vol. 12.1 fl (6.2-12.0); Monocyte# 0.39 X10^3/uL; Monocyte% 10.6 % (0-10); NRBC Flagged by Analyzer 0 % (0-5); Neutrophil # 2.29 X10^3/uL (2.7-7.7); Neutrophil % 62.4 % (47-70); Platelet Count 192 K/mm3 (150-450); RBC Distribution Width CV 13.7 % (11.6-14.6); RBC Distribution Width SD 42.1 fl (35.1-43.9); Red Blood Count 4.73 M/mm3 (4.2-5.4); White Blood Count 3.7 K/mm3 (4.4-11.0)
[2021-08-12 12:37] LABS: ALB/GLOB Ratio 1.1 RATIO (0.9-2.4); AST(SGOT) 20 U/L (15-37); Alanine Aminotransfer ALT/SGPT 29 U/L (13-56); Albumin, Serum 3.7 g/dL (3.2-5.0); Alkaline Phosphatase 68 U/L (45-117); Anion Gap 5 (5-15); BUN 14 mg/dL (7-18); BUN/Creat Ratio 19.7 RATIO (10-20); CRP < 2.90 mg/L (0.0-3.0); Calcium,Total 9.5 mg/dL (8.5-10.1); Chloride 107 mmol/L (98-107); Creatinine, Serum 0.71 mg/dL (0.55-1.02); EST Glomerular Filtration Rate 88 mL/min (>60); Est Glom Filt Rate - Afr Amer 106 mL/min (>60); Globulin 3.4 g/dL (2.2-4.2); Glucose 91 mg/dL (74-106); Potassium 3.8 mmol/L (3.5-5.1); Protein, Total 7.1 g/dL (6.4-8.2); Sodium Level 141 mmol/L (136-145)
[2021-08-13 13:08] LABS: Anti-Centromere B Ab <0.2 AI (0.0-0.9); Anti-Chromatin <0.2 AI (0.0-0.9); Anti-Jo <0.2 AI (0.0-0.9); Anti-Scleroderma-70 AB <0.2 AI (0.0-0.9); Anti-ribosomal P Antibodies <0.2 AI (0.0-0.9); RNP Ab <0.2 AI (0.0-0.9); SJOGREN'S Anti-SS-A test < 0.2 AI (0.0-0.9); SJOGREN'S Anti-SS-B test > 8.0 AI (0.0-0.9); Smith Ab <0.2 AI (0.0-0.9); Smith/RNP Ab <0.2 AI (0.0-0.9)
[2021-08-13 15:30] LABS: Anti-dsDNA Ab 1 IU/mL (0-9)
== END 2021-08-12 23:59 | disposition home or self-care (01) ==
PROVIDERS: PCP Family Medicine; Referring Provider Family Medicine; Visit Provider Family Medicine
DX: Z12.31 Encounter for screening mammogram for malignant neoplasm of breast (principal); M35.00 Sjogren syndrome, unspecified; R29.898 Other symptoms and signs involving the musculoskeletal system; R74.8 Abnormal levels of other serum enzymes
CPT/HCPCS: 36415; 77067; 80053; 85025; 86038; 86140; 86225; 86235

== ENCOUNTER → 2022-01-02 | Outpatient (CLI) | payer MEDICARE, OTHER, SELFPAY ==
[2022-01-02 12:52] LABS: Estradiol < 11.0 pg/mL
[2022-01-03 10:22] LABS: Progesterone Level < 0.21 ng/mL (See Comment)
== END | disposition home or self-care (01) ==
LOC: MFPLAB 09:59
PROVIDERS: PCP Family Medicine; Visit Provider Family Medicine
DX: Z78.0 Asymptomatic menopausal state (principal)
CPT/HCPCS: 36415; 82670; 84144; 84403

== ENCOUNTER → 2022-02-04 | Outpatient (CLI) | payer MEDICARE, OTHER, SELFPAY ==
[2022-02-04 18:34] LABS: Estradiol < 11.0 pg/mL
[2022-02-05 08:17] LABS: Progesterone Level < 0.21 ng/mL (See Comment)
== END | disposition home or self-care (01) ==
LOC: MFPLAB 16:01
PROVIDERS: PCP Family Medicine; Referring Provider Family Medicine; Visit Provider Family Medicine
DX: Z78.0 Asymptomatic menopausal state (principal)
CPT/HCPCS: 36415; 82670; 84144; 84403

== ENCOUNTER → 2022-03-16 | Outpatient (CLI) | payer MEDICARE, SELFPAY ==
[2022-03-16 18:22] LABS: Progesterone Level < 0.21 ng/mL (See Comment)
== END | disposition home or self-care (01) ==
LOC: MFPLAB 11:24
PROVIDERS: PCP Family Medicine; Visit Provider Family Medicine
DX: Z78.0 Asymptomatic menopausal state (principal)
CPT/HCPCS: 36415; 84144

== ENCOUNTER → 2022-03-19 | Outpatient (CLI) | payer MEDICARE, SELFPAY | END | disposition home or self-care (01) | PROVIDERS: PCP Family Medicine; Visit Provider Family Medicine | DX: N39.0 Urinary tract infection, site not specified (principal) | CPT/HCPCS: 87086; 87088 ==

== ENCOUNTER → 2022-07-27 | Outpatient (CLI) | payer MEDICARE, SELFPAY ==
[2022-07-27 12:09] LABS: Absolute Lymphocyte Count 1.36 X10^3/uL (0.83-4.51); Absolute Neutrophil Count 2.8 X10^3/uL (2.0-7.7); Basophil# 0.05 X10^3/uL; Eosinophils% 2.1 % (0-5); Hematocrit 42.5 % (37-47); Hemoglobin 13.6 g/dL (12.0-15.0); Lymphocyte # 1.36 X10^3/ul (0.83-4.51); Lymphocyte % 28.2 % (19-41); Mean Corpuscular Hgb 27.2 pg (27.0-32.0); Mean Platelet Vol. 12.1 fl (6.2-12.0); Monocyte# 0.48 X10^3/uL; NRBC Flagged by Analyzer 0 % (0-5); Neutrophil # 2.81 X10^3/uL (2.7-7.7); Neutrophil % 58.3 % (47-70); POSITIVE MORPHOLOGY YES; Platelet Count 206 K/mm3 (150-450); RBC Distribution Width CV 13.2 % (11.6-14.6); RBC Distribution Width SD 40.3 fl (35.1-43.9); White Blood Count 4.8 K/mm3 (4.4-11.0)
[2022-07-27 12:17] LABS: Differential Indicated SCAN CRITERIA MET
[2022-07-27 12:26] LABS: Vitamin D,25 Hydroxy 49.2 ng/mL
[2022-07-27 12:49] LABS: Reactive Lymphocyte 1+
[2022-07-27 12:58] LABS: ALB/GLOB Ratio 1.1 RATIO (0.9-2.4); AST(SGOT) 18 U/L (15-37); Alanine Aminotransfer ALT/SGPT 28 U/L (13-56); Albumin, Serum 3.9 g/dL (3.2-5.0); Alkaline Phosphatase 79 U/L (45-117); Anion Gap 9 (5-15); BUN 19 mg/dL (7-18); BUN/Creat Ratio 28.7 RATIO (10-20); Calcium,Total 9.5 mg/dL (8.5-10.1); Chloride 107 mmol/L (98-107); Creatinine, Serum 0.66 mg/dL (0.55-1.02); EST Glomerular Filtration Rate 95 mL/min (>60); Est Glom Filt Rate - Afr Amer 115 mL/min (>60); Globulin 3.6 g/dL (2.2-4.2); Glucose 93 mg/dL (74-106); Magnesium 2.2 mg/dL (1.6-2.6); Potassium 4.2 mmol/L (3.5-5.1); Protein, Total 7.5 g/dL (6.4-8.2); Sodium Level 143 mmol/L (136-145); Thyroid Stim Hormone (TSH) 2.74 uIU/mL (0.358-3.74)
== END | disposition home or self-care (01) ==
PROVIDERS: PCP Family Medicine; Visit Provider Family Medicine
DX: M35.00 Sjogren syndrome, unspecified (principal); R00.2 Palpitations; M85.80 Other specified disorders of bone density and structure, unspecified site
CPT/HCPCS: 36415; 80053; 82306; 83735; 84443; 85025

== ENCOUNTER → 2023-04-15 | Outpatient (CLI) | payer MEDICARE, SELFPAY ==
--- NOTE | 2023-04-15 13:26 | MRI_ITS ---
INDICATION: RADICULOPATHY, low back pain, weakness in extremities EXAMINATION: MRI - MR Spine Lumbar W/O Contrast TECHNIQUE: Multiplanar and multisequence MR images of the lumbar spine. IV Contrast Dosage and Agent: None. COMPARISON: None. FINDINGS: VERTEBRAE: Vertebral body heights are preserved. No acute fracture or pathologic marrow replacement. VERTEBRAL ALIGNMENT: No spondylolisthesis. There is preservation of the normal lumbar lordosis. CORD: Normal position and signal intensity of the conus medullaris. L1/L2: Normal disc height and morphology. Normal spinal canal, lateral recesses and neuroforamina. L2/L3: Minimal annular bulge. No significant central or foraminal stenosis. L3/L4: Minimal annular bulge. No significant central or foraminal stenosis. L4/L5: Loss of disc space height. Circumferential annular bulge without significant central stenosis. Moderate right foraminal stenosis, mild left foraminal stenosis. L5/S1: Loss of disc height. Circumferential annular bulge with moderate bilateral foraminal encroachment, no significant central stenosis. SOFT TISSUES: Unremarkable. MRI/Spine Lumbar (Routine) IMPRESSION: Multilevel degenerative disc disease with foraminal stenoses as above. Most severe findings at the level of L4-5 and L5-S1. Electronically Signed: Richie Wilcox MD at 22:31 EDT ,
== END | disposition home or self-care (01) ==
LOC: MRI 13:15
PROVIDERS: Referring Provider Anesthesiology Pain Medicine; Visit Provider Anesthesiology Pain Medicine
DX: M54.17 Radiculopathy, lumbosacral region (principal)
CPT/HCPCS: 72148